=== PATIENT | female | born 1955 | race American Indian/Alaskan Native ===

== ENCOUNTER 2017-12-27 13:32 | Outpatient (CLI) | payer MEDICARE ==
[2017-12-27] MEDS ORDERED: XYLOCAINE TOPICAL 4% TP ONE (14:11)
== END 2017-12-27 13:33 | disposition home or self-care (01) ==
LOC: WOUND 13:32
PROVIDERS: ATTEND Surgery
DX: E11.622 Type 2 diabetes mellitus with other skin ulcer (principal); L89.322 Pressure ulcer of left buttock, stage 2; L89.311 Pressure ulcer of right buttock, stage 1; L98.411 Non-pressure chronic ulcer of buttock limited to breakdown of skin; I10 Essential (primary) hypertension; Z86.73 Personal history of transient ischemic attack (TIA), and cerebral infarction without residual deficits
CPT/HCPCS: 99205; G0463

== ENCOUNTER 2018-01-03 12:44 | Outpatient (CLI) | payer MEDICARE ==
[2018-01-03] MEDS ORDERED: XYLOCAINE TOPICAL 4% TP ONE (13:50)
== END 2018-01-03 12:45 | disposition home or self-care (01) ==
LOC: WOUND 12:44
PROVIDERS: ATTEND Surgery
DX: E11.622 Type 2 diabetes mellitus with other skin ulcer (principal); L98.411 Non-pressure chronic ulcer of buttock limited to breakdown of skin; L89.311 Pressure ulcer of right buttock, stage 1; L89.322 Pressure ulcer of left buttock, stage 2; I10 Essential (primary) hypertension; Z86.73 Personal history of transient ischemic attack (TIA), and cerebral infarction without residual deficits
CPT/HCPCS: 99213; G0463